=== PATIENT | male | born 1945 | race Caucasian/White ===

== ENCOUNTER → 2017-04-30 | Outpatient (CLI) | payer MEDICARE ==
--- NOTE | 2017-04-30 15:15 | PCVCIMAG ---
APPROVED REPORT Study performed: 04/30/2017 13:40:38 EXAM: Comprehensive 2D, Doppler, and color-flow Echocardiogram Patient Location: Echo lab Status: routine Other Information Study Quality: Fair Indications ICD: Pacemaker CAD Cardiomyopathy Hypertension/HDD NICM, HX OR 2D Dimensions IVSd: 10.83 (7-11mm)LVOT Diam: 24.14 (18-24mm) LVDd: 61.87 mm PWd: 11.07 (7-11mm)Ascending Ao: 33.86 (22-36mm) LVDs: 46.93 (25-40mm) Left Atrium: 38.95 (27-40mm) Aortic Root: 26.30 mm LV Single Plane 4CH: 31.26 % LV Single Plane 2CH: 25.64 %Matamoros's LVEF: 28.45 % Biplane EF: 28.6 % Volumes Left Atrial Volume (Systole) Single Plane 4CH: 49.73 mLSingle Plane 2CH: 56.13 mL LA ESV Index: 22.00 mL/m2 Aortic Valve AoV Peak Carlos.: 1.33 m/s AO Peak Gr.: 7.09 mmHgLVOT Max P.47 mmHg LVOT Max V: 0.93 m/s MINNA Vmax: 3.20 cm2 Mitral Valve E/A Ratio: 0.5 MV Decel. Time: 177.25 ms MV E Max Carlos.: 0.37 m/s MV A Carlos.: 0.80 m/s IVRT: 159.17 ms TDI E/Lateral E': 9.25E/Medial E': 9.25 Medial E' Carlos.: 0.04 m/s Lateral E' Carlos.: 0.04 m/s Pulmonary Valve PV Peak Carlos.: 0.73 m/sPV Peak Gr.: 2.13 mmHg Pulmonary Vein P Vein S: 0.39 m/sP Vein A: 0.26 m/s P Vein D: 0.28 m/sP Vein A Dur.: 145.3 msec P Vein S/D Ratio: 1.39 Tricuspid Valve TR Peak Carlos.: 2.28 m/s TR Peak Gr.: 20.80 mmHg TV Vmax: 0.34 m/sPA Pressure: 28.00 mmHg Left Ventricle Left ventricle is moderately dilated. Moderately severe LV dysfunction There is normal LV segmental wall motion. Borderline concentric left ventricular hypertrophy. Left ventricular systolic function is moderate severely decreased. LVEF is 30-35%. Grade I - abnormal relaxation pattern. Right Ventricle The right ventricle is normal size. The right ventricular systolic function is normal. Atria The left atrium size is normal. The right atrium size is normal. Aortic Valve The aortic valve is normal in structure. No aortic regurgitation is present. There is no aortic valvular stenosis. Mitral Valve The mitral valve is normal in structure. There is no mitral valve regurgitation noted. No evidence of mitral valve stenosis. Tricuspid Valve The tricuspid valve is normal in structure. There is trivial tricuspid valve regurgitation noted with a PA prewssure of 28mmHg.. Pulmonic Valve The pulmonary valve is normal in structure. There is no pulmonic valvular regurgitation. Great Vessels The aortic root is normal in size. The ascending aorta is normal in size. IVC is normal in size and collapses with >50% inspiration The pulmonary artery is normal. Pericardium There is no pericardial effusion. There is no pleural effusion. <Conclusion> Left ventricle is moderately dilated. Moderately severe LV dysfunction The right ventricle is normal size. The right ventricular systolic function is normal. The left atrium size is normal. The aortic valve is normal in structure. The mitral valve is normal in structure. There is trivial tricuspid valve regurgitation noted with a PA prewssure of 28mmHg..
== END | disposition home or self-care (01) ==
LOC: PCVCIMAG 13:30
PROVIDERS: ATTEND Internal Medicine Cardiovascular Disease
DX: I07.1 Rheumatic tricuspid insufficiency (principal); I25.10 Atherosclerotic heart disease of native coronary artery without angina pectoris; I10 Essential (primary) hypertension; E11.9 Type 2 diabetes mellitus without complications; I25.2 Old myocardial infarction; I42.9 Cardiomyopathy, unspecified; J45.909 Unspecified asthma, uncomplicated; F31.9 Bipolar disorder, unspecified; M19.90 Unspecified osteoarthritis, unspecified site; E78.00 Pure hypercholesterolemia, unspecified; Z79.82 Long term (current) use of aspirin; Z95.1 Presence of aortocoronary bypass graft; Z79.84 Long term (current) use of oral hypoglycemic drugs; Z79.899 Other long term (current) drug therapy; Z87.891 Personal history of nicotine dependence
CPT/HCPCS: 93005; 93306; G0463

== ENCOUNTER → 2017-05-26 | Outpatient (CLI) | payer MEDICARE | END | disposition home or self-care (01) | LOC: PCVCCLINIC 16:14 | PROVIDERS: ATTEND Internal Medicine Cardiovascular Disease | DX: I25.10 Atherosclerotic heart disease of native coronary artery without angina pectoris (principal); I42.9 Cardiomyopathy, unspecified; E78.00 Pure hypercholesterolemia, unspecified; I10 Essential (primary) hypertension; E11.9 Type 2 diabetes mellitus without complications; J45.909 Unspecified asthma, uncomplicated; F31.9 Bipolar disorder, unspecified; M19.90 Unspecified osteoarthritis, unspecified site; Z79.82 Long term (current) use of aspirin; Z79.84 Long term (current) use of oral hypoglycemic drugs; Z95.0 Presence of cardiac pacemaker; Z87.891 Personal history of nicotine dependence | CPT/HCPCS: 93005; G0463 ==

== ENCOUNTER → 2017-06-09 | Outpatient (CLI) | payer MEDICARE | END | disposition home or self-care (01) | LOC: PCVCCLINIC 13:16 | PROVIDERS: ATTEND Internal Medicine Cardiovascular Disease | DX: I25.10 Atherosclerotic heart disease of native coronary artery without angina pectoris (principal) | CPT/HCPCS: 36415 ==

== ENCOUNTER → 2018-03-15 | Outpatient (CLI) | payer MEDICARE | END | disposition home or self-care (01) | LOC: PCVCIMAG 10:46 | DX: I25.10 Atherosclerotic heart disease of native coronary artery without angina pectoris (principal); I42.9 Cardiomyopathy, unspecified; I10 Essential (primary) hypertension; E78.00 Pure hypercholesterolemia, unspecified; R06.00 Dyspnea, unspecified; E78.5 Hyperlipidemia, unspecified; R94.31 Abnormal electrocardiogram [ECG] [EKG]; Z79.82 Long term (current) use of aspirin; Z79.899 Other long term (current) drug therapy; Z79.84 Long term (current) use of oral hypoglycemic drugs; Z87.891 Personal history of nicotine dependence | CPT/HCPCS: 93005; 93306; G0463 ==

== ENCOUNTER → 2018-03-16 | Outpatient (CLI) | payer MEDICARE | END | disposition home or self-care (01) | LOC: PCVCCLINIC 14:20 | DX: I25.10 Atherosclerotic heart disease of native coronary artery without angina pectoris (principal); I10 Essential (primary) hypertension; E78.00 Pure hypercholesterolemia, unspecified; Z87.891 Personal history of nicotine dependence | CPT/HCPCS: 93005; 93280; G0463 ==

== ENCOUNTER → 2018-09-16 | Outpatient (CLI) | payer MEDICARE | END | disposition home or self-care (01) | LOC: PCVCCLINIC 12:55 | PROVIDERS: ATTEND Internal Medicine Cardiovascular Disease | DX: I42.9 Cardiomyopathy, unspecified (principal); I25.10 Atherosclerotic heart disease of native coronary artery without angina pectoris; I10 Essential (primary) hypertension; E78.00 Pure hypercholesterolemia, unspecified; E11.9 Type 2 diabetes mellitus without complications; E78.5 Hyperlipidemia, unspecified; R60.9 Edema, unspecified; Z95.0 Presence of cardiac pacemaker; Z87.891 Personal history of nicotine dependence; Z79.82 Long term (current) use of aspirin | CPT/HCPCS: 93005; G0463 ==

== ENCOUNTER → 2019-03-22 | Outpatient (CLI) | payer MEDICARE ==
--- NOTE | 2019-03-22 13:47 | PCVCIMAG ---
APPROVED REPORT Study performed: 03/22/2019 12:40:37 EXAM: Comprehensive 2D, Doppler, and color-flow Echocardiogram Patient Location: Echo lab Status: routine BSA: 2.34 HR: 76 bpmBP: 112/70 mmHg Rhythm: NSR Other Information Study Quality: Adequate Risk Factors: Cardiac Risk Factors: HTN, Hyperlipidemia Indications Dyspnea CAD non ischemic cardiomyopathy 2D Dimensions IVSd: 14.55 (7-11mm) LVDd: 52.46 mm PWd: 14.33 (7-11mm)Ascending Ao: 35.29 (22-36mm) LVDs: 44.35 (25-40mm) Left Atrium: 43.40 (27-40mm) Aortic Root: 34.68 mm LV Single Plane 4CH: 24.65 % LV Single Plane 2CH: 27.53 % Biplane EF: 26.7 % Volumes Left Atrial Volume (Systole) Single Plane 4CH: 63.01 mLSingle Plane 2CH: 46.55 mL LA ESV Index: 24.00 mL/m2 Aortic Valve AoV Peak Carlos.: 1.16 m/s AO Peak Gr.: 5.41 mmHgLVOT Max P.80 mmHg LVOT Max V: 0.67 m/s Mitral Valve IVRT: 138.41 ms Pulmonary Valve PV Peak Carlos.: 0.81 m/sPV Peak Gr.: 2.63 mmHg Pulmonary Vein P Vein S: 0.18 m/sP Vein A: 0.27 m/s P Vein D: 0.25 m/sP Vein A Dur.: 141.9 msec P Vein S/D Ratio: 0.72 Tricuspid Valve TR Peak Carlos.: 2.43 m/s TR Peak Gr.: 23.63 mmHg Left Ventricle The left ventricle is normal size. There is normal LV segmental wall motion. Mild concentric left ventricular hypertrophy. Left ventricular systolic function is moderate to severely decreased. LVEF is 30%. Grade I - abnormal relaxation pattern. Right Ventricle The right ventricle is normal size. The right ventricular systolic function is normal. Pacemaker lead is present in the right ventricle. Atria The left atrium size is normal. The interatrial septum is intact with no evidence for an atrial septal defect. The right atrium size is normal. Pacemaker lead is present in the right atrium. Aortic Valve The aortic valve is normal in structure. No aortic regurgitation is present. There is no aortic valvular stenosis. Mitral Valve The mitral valve is normal in structure. Trace mitral regurgitation. No evidence of mitral valve stenosis. Tricuspid Valve The tricuspid valve is normal in structure. Mild tricuspid regurgitation with PAP of 34 mmHg. Pulmonic Valve The pulmonary valve is normal in structure. Trace pulmonic regurgitation. Great Vessels The aortic root is normal in size. IVC is normal in size and collapses >50% with inspiration. Pericardium There is no pericardial effusion. There is no pleural effusion. <Conclusion> The left ventricle is normal size. Mild concentric left ventricular hypertrophy. Left ventricular systolic function is moderate to severely decreased. Grade I - abnormal relaxation pattern. The right ventricle is normal size. Pacemaker lead is present in the right ventricle. The left atrium size is normal. The right atrium size is normal. Pacemaker lead is present in the right atrium. The aortic valve is normal in structure. Trace mitral regurgitation. Mild tricuspid regurgitation with PAP of 34 mmHg.
== END | disposition home or self-care (01) ==
LOC: PCVCIMAG 12:50
PROVIDERS: ATTEND Internal Medicine Cardiovascular Disease
DX: I07.1 Rheumatic tricuspid insufficiency (principal); I25.10 Atherosclerotic heart disease of native coronary artery without angina pectoris; R06.09 Other forms of dyspnea; I42.9 Cardiomyopathy, unspecified; I10 Essential (primary) hypertension; E78.00 Pure hypercholesterolemia, unspecified; R60.9 Edema, unspecified; E11.9 Type 2 diabetes mellitus without complications; Z79.82 Long term (current) use of aspirin; Z95.0 Presence of cardiac pacemaker; Z87.891 Personal history of nicotine dependence
CPT/HCPCS: 93005; 93306; G0463

== ENCOUNTER → 2019-04-06 | Outpatient (CLI) | payer MEDICARE | END | disposition home or self-care (01) | LOC: PCVCCLINIC 11:00 | PROVIDERS: ATTEND Internal Medicine Cardiovascular Disease | DX: I10 Essential (primary) hypertension (principal); E78.00 Pure hypercholesterolemia, unspecified; E78.5 Hyperlipidemia, unspecified | CPT/HCPCS: 36415 ==